=== PATIENT | female | born 1975 | race Caucasian/White ===

== ENCOUNTER 2021-11-24 14:06 | Outpatient (CLI) | payer OTHER | END 2021-11-24 14:07 | disposition home or self-care (01) | LOC: CSHMAMMO 14:06 | PROVIDERS: ATTEND Family Medicine Sports Medicine | DX: Z12.31 Encounter for screening mammogram for malignant neoplasm of breast (principal) | CPT/HCPCS: 77063; 77067 ==

== ENCOUNTER 2022-12-06 10:44 | Outpatient (CLI) | payer OTHER | END 2022-12-06 10:45 | disposition home or self-care (01) | LOC: CSHMAMMO 10:44 | PROVIDERS: ATTEND Family Medicine Sports Medicine | DX: Z12.31 Encounter for screening mammogram for malignant neoplasm of breast (principal); N64.89 Other specified disorders of breast | CPT/HCPCS: 77063; 77067 ==

== ENCOUNTER 2023-12-19 11:25 | Outpatient (CLI) | payer OTHER | END 2023-12-19 11:26 | disposition home or self-care (01) | LOC: CSHMAMMO 11:25 | PROVIDERS: ATTEND Family Medicine Sports Medicine | DX: Z12.31 Encounter for screening mammogram for malignant neoplasm of breast (principal) | CPT/HCPCS: 77063; 77067 ==